=== PATIENT | female | born 1990 | race Caucasian/White ===

== ENCOUNTER 2016-06-17 06:34 | Emergency (ER) | payer OTHER ==
[2016-06-17] MEDS ORDERED: ONDANSETRON 4 MG ODT TAB ONE (07:09)
[2016-06-17] MEDS ORDERED: ALBUTEROL/IPRATROPIUM 2.5/0.5 MG 3 ML/EACH DOSE ONE ×2 (07:09→07:18)
--- NOTE | 2016-06-17 08:25 | RAD ---
CHEST - 2 VIEWS COMPARISON: None. HISTORY: Nonproductive cough for 5 days. FINDINGS: Views: Frontal and lateral chest Lungs: Normal Heart and vessels: Normal Trachea and bronchi: Normal Mediastinum and brad: Normal Costophrenic sulci: Normal Chest wall and bones: Normal. Upper abdomen: Normal. IMPRESSION: Negative 2 view chest.
== END 2016-06-17 08:12 | disposition home or self-care (01) ==
LOC: ED 06:34
DX: J98.01 Acute bronchospasm (principal); J06.9 Acute upper respiratory infection, unspecified; R05 Cough; R11.2 Nausea with vomiting, unspecified
CPT/HCPCS: 71020; 94640; 99283 ×2; A9270